=== PATIENT | male | born 1965 | race Two or more races ===

== ENCOUNTER 2016-08-10 10:44 | Inpatient (IN) | payer OTHER, MEDICAID ==
[~2016-08-10] VITALS: Ht 172.7 cm; Wt 70.3 kg
--- NOTE | 2016-08-10 10:55 | NUR ---
PT AMBULATORY TO ER BED 12. PRESENTS W/ ABCESS TO RT SIDE GROIN AREA X 4 DAYS AGO. REDNESS TO SURROUNDING AREA. INTACT SKIN W/ NOTED PUS. GOWNED AND PLACED ON MONITOR. PT IS C/O 10/10 PAIN. AWAITNG MD BROWNE.
--- NOTE | 2016-08-10 11:20 | NUR ---
DR HEREDIA AT BEDSIDE FOR EVAL.
[2016-08-10] MEDS ORDERED: IV SET PRIMARY PUMP SET 1 EA INFUS.SET MC ONE ×2 (11:29→19:57)
[2016-08-10] MEDS ORDERED: IV SET PRIMARY 1 EA INFUS.SET MC ONE (11:29)
[2016-08-10] MEDS ORDERED: ONDANSETRON HCL/PF 4 MG/2 ML VIAL ONE (11:29)
[2016-08-10] MEDS ORDERED: MORPHINE SULFATE INJ 4 MG/ML DISP.SYRIN ONE (11:29)
[2016-08-10] MEDS ORDERED: IV NS 0.9% 1,000 ML ONE (11:29)
[2016-08-10] MEDS ORDERED: ONDANSETRON HCL/PF 4 MG/2 ML VIAL IVP ONE (11:30)
[2016-08-10] MEDS ORDERED: VANCOMYCIN 1 GM in IV D5W 250 ML IV ONE (11:30)
[2016-08-10] MEDS ORDERED: IV NS 0.9% 1,000 ML BAG IV ONE (11:30)
[2016-08-10] MEDS ORDERED: MORPHINE SULFATE INJ 2 MG/ML DISP.SYRIN IV ONE (11:30)
[2016-08-10 11:32] LABS: BASOPHILS % (AUTO) 0.5 % (0.0-2.0); EOSINOPHILS % (AUTO) 0.6 % (0.0-6.0); HEMATOCRIT 45 % (39-51); HEMOGLOBIN 14.7 g/dL (13.5-17.5); LYMPHOCYTES # (AUTO) 1.8 /CMM (0.8-4.8); LYMPHOCYTES % (AUTO) 23.4 % (20.0-44.0); MEAN CORPUSCULAR HEMOGLOBIN 28 PG (26.0-33.0); MEAN CORPUSCULAR HGB CONC 33 g/dl (31.0-36.0); MEAN CORPUSCULAR VOLUME 84 fL (80-96); MONOCYTES # (AUTO) 0.7 /CMM (0.1-1.30); MONOCYTES % (AUTO) 8.6 % (2.0-12.0); NEUTROPHILS # (AUTO) 5.2 /CMM (1.8-8.9); NEUTROPHILS % (AUTO) 66.9 % (43.0-81.0); PLATELET COUNT (AUTO) 184 /CMM (150-450); RDW COEFFICIENT OF VARIATION 14.6 (11.5-15.0); RED BLOOD CELL COUNT(AUTO) 5.29 MIL/uL (4.5-6.0); WHITE BLOOD COUNT (AUTO) 7.7 K/uL (4.3-11.0)
[2016-08-10 11:42] LABS: CALCIUM, SERUM 9.6 mg/dL (8.5-10.1); POTASSIUM 4.1 mmol/L (3.5-5.1)
[2016-08-10 11:58] LABS: INR 1.03 (0.87-1.13)
--- NOTE | 2016-08-10 12:27 | NUR ---
HARESH PAGED, [employer] DRILL OPERATOR
--- NOTE | 2016-08-10 12:32 | NUR ---
CALLED NURSING SUP. FOR MS BED
--- NOTE | 2016-08-10 12:55 | NUR ---
HARESH PAGED, CYLINDER MACHINE OPERATOR
--- NOTE | 2016-08-10 13:09 | NUR ---
REPORT GIVEN TO HUMZA. AWAITING TRANSFER TO FLOOR.
[2016-08-10 13:30] VITALS: BP 122/82
[2016-08-10] MEDS ORDERED: ONDANSETRON HCL/PF 4 MG/2 ML VIAL IVP PRN (13:30)
[2016-08-10] MEDS ORDERED: Z GUARD REMEDY 2 OZ OINT TP PRN (13:30)
[2016-08-10] MEDS ORDERED: MAGNESIUM HYDROXIDE 30 ML UDC PO PRN (13:30)
[2016-08-10] MEDS ORDERED: MAG HYDROX/AL HYDROX/SIMETH 30 ML UDC PO PRN (13:30)
--- NOTE | 2016-08-10 13:30 | NUR ---
MS2/RN- OPENING NOTE PT. BROUGHT FROM EMERGENCY DEPARTMENT IN STABLE CONDITION. REPORT WAS PROVIDED. PT. A&OX4. BREATHING EVENLY, AND UNLABORED, RR 20, SP02 100%. PT. VITAL SIGNS, BP 122/82, HR 72. NO FEVER, TEMP. 98.7 F. PT. C/O PAIN, 8/10 IN AFFECTED AREA WHERE ABSCESS IS PRESENT, PAIN MEDICATION OFFERED AND GIVEN NORCO. PHOTO TAKEN OF WOUND ON GROIN FOR PT. RECORD, AND WOUND CONSULT ORDERED.
[2016-08-10] MEDS ORDERED: ZOLP10TA6 PO (13:33)
[2016-08-10] MEDS ORDERED: TRAM50TA2 PO (13:33)
[2016-08-10] MEDS ORDERED: FEE PK DOSING 1 MIN EA MC ONE (13:41)
[2016-08-10 14:00] VITALS: BP 122/82
[2016-08-10] MEDS: HYDROCODONE/APAP 5/325MG 1 EACH TABLET PO PRN ×2 (15:27→19:56)
[2016-08-10 16:00] VITALS: BP 125/80
--- NOTE | 2016-08-10 18:44 | NUR ---
MS2/RN -CLOSING NOTE PT. IS IN BED, AWAKE, A&OX4. NOT IN DISTRESS, BREATHING EVENLY AND UNLABORED. PT. DENIES PAIN. PT. BED IN LOW POSITION, 2 SIDE RAILS UP, CALL LIGHT WITHIN REACH. PT. HAS IV ACCESS ON THE RIGHT FOREARM. PT. HAD DINNER AND REPORTED DRINKING A CARTON OF MILK.
--- NOTE | 2016-08-10 19:30 | NUR ---
MS RN OPENING NOTES: PATIENT IN BED, AOX4, ON ROOM AIR, BREATHING EVEN AND UNLABORED. STATES THAT HE HAS PAIN OVER HIS R GROIN AREA SCALED AT 6/10, RADIATING TOWARDS THIGH. REASSURED PATIENT AND EXPLAINED SCHEDULED OF PAIN MEDICATIONS. PIV OVER RFA G 18 INTACT AND PATENT TO FLUSH. PROVIDED FOR COMFORT AND SAFETY. WILL CONT TO MONITOR.
[2016-08-10] MEDS ORDERED: SECONDARY IV SET 1 EA INFUS.SET MC ONE (19:52)
[2016-08-10] MEDS: VANCOMYCIN 1 GM in IV D5W 250 ML IV SCH (19:56)
[2016-08-10] MEDS ORDERED: IV NS 0.9% 250 ML IV ONE (19:57)
[2016-08-10 20:00] VITALS: BP 111/71
--- NOTE | 2016-08-10 20:00 | NUR ---
RN NOTES: PT C/O OF PAIN OVER R GROIN SCALED AT 4/10. ADMINISTERED NORCO 5-325 MG PO PRN. WILL CONT TO MONITOR.
[2016-08-10 22:00] VITALS: BP 111/71
[2016-08-11] MEDS: ZOLPIDEM TARTRATE 5 MG TABLET PO PRN ×2 (00:44→21:54)
[2016-08-11] MEDS: VANCOMYCIN 1 GM in IV D5W 250 ML IV SCH ×3 (04:19→20:24)
[2016-08-11 06:16] LABS: *BASOS 0 % (.); *EOS 0 % (.); *HCT 41.4 % (37.5-51.0); *HGB 13.7 g/dL (12.6-17.7); *IMMATURE GRANULOCYTES 0 % (.); *LYMPHOCYTES 22 % (.); *LYMPHS, ABSOLUTE 1.8 x10E3/uL (0.7-3.1); *MCH 27.8 pg (26.6-33.0); *MCHC 33.1 g/dL (31.5-35.7); *MCV 84 fL (79-97); *MONOCYTES 6 % (.); *MONOS, ABSOLUTE 0.5 x10E3/uL (0.1-0.9); *NEUTROPHILS 72 % (.); *NEUTROPHILS, ABSOLUTE 5.7 x10E3/uL (1.4-7.0); *PLT 200 x10E3/uL (150-379); *RBC 4.93 x10E6/uL (4.14-5.80); *RDW 15.7 % (12.3-15.4); *WBC 7.9 x10E3/uL (3.4-10.8)
[2016-08-11 06:44] LABS: BASOPHILS % (AUTO) 0.3 % (0.0-2.0); EOSINOPHILS # (AUTO) 0.1 /CMM (0.0-0.7); EOSINOPHILS % (AUTO) 1.2 % (0.0-6.0); HEMATOCRIT 37 % (39-51); HEMOGLOBIN 12.5 g/dL (13.5-17.5); LYMPHOCYTES # (AUTO) 1.5 /CMM (0.8-4.8); LYMPHOCYTES % (AUTO) 26.1 % (20.0-44.0); MEAN CORPUSCULAR HEMOGLOBIN 29 PG (26.0-33.0); MEAN CORPUSCULAR HGB CONC 34 g/dl (31.0-36.0); MEAN CORPUSCULAR VOLUME 85 fL (80-96); MONOCYTES # (AUTO) 0.5 /CMM (0.1-1.30); MONOCYTES % (AUTO) 9.6 % (2.0-12.0); NEUTROPHILS # (AUTO) 3.6 /CMM (1.8-8.9); NEUTROPHILS % (AUTO) 62.8 % (43.0-81.0); PLATELET COUNT (AUTO) 176 /CMM (150-450); RDW COEFFICIENT OF VARIATION 15.8 (11.5-15.0); RED BLOOD CELL COUNT(AUTO) 4.38 MIL/uL (4.5-6.0); WHITE BLOOD COUNT (AUTO) 5.7 K/uL (4.3-11.0)
--- NOTE | 2016-08-11 06:48 | NUR ---
MS RN CLOSING NOTES: PATIENT IN BED, AOX4, ON ROOM AIR, BREATHING EVEN AND UNLABORED. CURRENTLY DENIES PAIN AT THIS TIME. PIV OVER RFA G 18 INTACT AND PATENT TO FLUSH. DUE MEDS GIVEN. PROVIDED FOR COMFORT AND SAFETY. NO ACUTE CHANGE IN CONDITION NOTED THROUGH SHIFT. WILL ENDORSE TO AM RN FOR JAUN.
[2016-08-11 07:16] LABS: CALCIUM, SERUM 8.4 mg/dL (8.5-10.1); MAGNESIUM 1.8 mg/dL (1.8-2.4); PHOSPHORUS 3.2 mg/dL (2.5-4.9); POTASSIUM 3.8 mmol/L (3.5-5.1)
[2016-08-11 08:00] VITALS: BP 104/69
--- NOTE | 2016-08-11 08:00 | NUR ---
MS RN OPENING NOTES: PATIENT IN BED, AOX4, ON ROOM AIR, BREATHING EVEN AND UNLABORED. STATES THAT HE HAS PAIN OVER HIS R GROIN AREA RADIATING TOWARDS THIGH. REASSURED PATIENT AND EXPLAINED SCHEDULED OF PAIN MEDICATIONS. PIV OVER RFA G 18 INTACT AND PATENT TO FLUSH. PROVIDED FOR COMFORT AND SAFETY. WILL CONT TO MONITOR.
--- NOTE | 2016-08-11 09:22 | NUR ---
WOUND CARE CONSULT: PT PRESENTS WITH RED RAISED AREA TO RT GROIN, PRESENT ON ADMISSION. SOME SEROSANGUINOUS DRAINAGE NOTED. RECOMMEND SURGICAL CONSULT. DISCUSSED WITH NURSING STAFF. PT IS INDEPENDENT WITH BED MOBILITY. YISEL SCORE IS 19. WILL SEE PRN. FAY IN AGREEMENT WITH PLAN OF CARE. Addendum: 08/11/16 at 0924 by ROXY WARD WNDNU Amended: Links added.
[2016-08-11] MEDS ORDERED: SECONDARY IV SET 1 EA INFUS.SET MC ONE (12:06)
[2016-08-11] MEDS: HYDROCODONE/APAP 5/325MG 1 EACH TABLET PO PRN ×2 (12:13→20:26)
[2016-08-11] MEDS ORDERED: SILVER NITRATE APPLICATOR 1 EA BOX TP STA (13:27)
[2016-08-11] MEDS ORDERED: LIDOCAINE 1%-EPI 1:100,000 20 ML VIAL TP ONE (13:30)
[2016-08-11] MEDS ORDERED: MORPHINE SULFATE INJ 2 MG/ML DISP.SYRIN IV STA (13:58)
[2016-08-11 16:00] VITALS: BP 110/69
[2016-08-11 16:18] LABS: *% CD 4 POS. LYMPH 18.1 % (30.8-58.5); *% CD 8 POS. LYMPH 54.1 % (12.0-35.5); *ABSOLUTE CD 4 HELPER 326 /uL (359-1519); *ABSOLUTE CD 8 SUPPRESSOR 974 /uL (109-897); *CD4/CD8 RATIO 0.33 (0.92-3.72)
--- NOTE | 2016-08-11 19:30 | NUR ---
MS RN OPENING NOTES: PATIENT IN BED, AOX4, ON ROOM AIR, BREATHING EVEN AND UNLABORED. APPEARS CALM, BUT STATES 6/10 PAIN OVER R GROIN. NOTED CLEAN, INTACT DRESSING OVER R GROIN. PIV OVER RFA G 18 INTACT AND PATENT TO FLUSH. PROVIDED FOR COMFORT AND SAFETY. EXPLAINED SCHEDULE FOR PAIN MEDICATIONS. WILL CONT TO MONITOR.
--- NOTE | 2016-08-11 19:30 | NUR ---
MS2/RN- CLOSING NOTE PT. IS IN BED A&OX4. PT IS NOT IN DISTRESS, BREATHING EVENLY AND UNLABORED. SURGICAL WOUND DRAINING WAS PERFORMED BY BERTHA THAO NP, AND WOUND CULTURE TAKEN. BED IS IN LOW POSITION, 2 SIDE RAILS UP.
[2016-08-11 20:00] VITALS: BP 115/74
--- NOTE | 2016-08-11 20:25 | NUR ---
RN NOTES: PT COMPLAINED OF 6/10 PAIN OVER R GROIN. ADMINISTERED NORCO 5-325 MG PO. ON BED AT LOWEST AND LOCKED POSITION. WILL CONT TO MONITOR.
--- NOTE | 2016-08-11 22:00 | NUR ---
RN NOTES: PT REQUESTED FOR AMBIEN, STATES HE HAS TROUBLE FALLING ASLEEP BECAUSE OF THE PAIN, AND THIS CAUSES HIM ANXIETY. GAVE AMBIEN 5 MG PO. PLACED PT'S BED ON LOWEST AND LOCKED POSITION, SIDERAILS UP X 3. WILL CONT TO MONITOR.
[2016-08-12] MEDS: VANCOMYCIN 1 GM in IV D5W 250 ML IV SCH ×3 (04:19→20:27)
--- NOTE | 2016-08-12 05:40 | NUR ---
RN NOTES: PATIENT DECLINED TO HAVE AM LABS DRAWN RIGHT NOW, SAYING HE STILL WANTS TO SLEEP.
[2016-08-12] MEDS: HYDROCODONE/APAP 5/325MG 1 EACH TABLET PO PRN ×2 (06:30→10:47)
--- NOTE | 2016-08-12 06:52 | NUR ---
MS RN CLOSING NOTES: PATIENT IN BED, AOX4, ON ROOM AIR, BREATHING EVEN AND UNLABORED. APPEARS CALM AND IN NO DISTRESS. COMPLAINED OF 6/10 PAIN OVER R GROIN, ADMINISTERED NORCO 5-325 MG PO PRN AT 0630 AM. DUE MEDS GIVEN. WOUND CARE DONE OVER R GROIN DONE: CLEANSED WITH DAIKINS SOLN, PACKED WITH DAIKINS MOISTENED GAUZE, COVERED WITH DRY DRESSING AND SECURED WITH TAPE. PROVIDED FOR COMFORT AND SAFETY. WILL ENDORSE TO AM RN FOR JAUN.
[2016-08-12 07:16] LABS: BASOPHILS % (AUTO) 0.4 % (0.0-2.0); EOSINOPHILS # (AUTO) 0.1 /CMM (0.0-0.7); EOSINOPHILS % (AUTO) 1.6 % (0.0-6.0); HEMATOCRIT 41 % (39-51); HEMOGLOBIN 13.9 g/dL (13.5-17.5); LYMPHOCYTES # (AUTO) 1.6 /CMM (0.8-4.8); LYMPHOCYTES % (AUTO) 44.2 % (20.0-44.0); MEAN CORPUSCULAR HEMOGLOBIN 29 PG (26.0-33.0); MEAN CORPUSCULAR HGB CONC 34 g/dl (31.0-36.0); MEAN CORPUSCULAR VOLUME 85 fL (80-96); MONOCYTES # (AUTO) 0.5 /CMM (0.1-1.30); MONOCYTES % (AUTO) 12.5 % (2.0-12.0); NEUTROPHILS # (AUTO) 1.5 /CMM (1.8-8.9); NEUTROPHILS % (AUTO) 41.3 % (43.0-81.0); PLATELET COUNT (AUTO) 189 /CMM (150-450); RDW COEFFICIENT OF VARIATION 15.7 (11.5-15.0); RED BLOOD CELL COUNT(AUTO) 4.86 MIL/uL (4.5-6.0); WHITE BLOOD COUNT (AUTO) 3.7 K/uL (4.3-11.0)
--- NOTE | 2016-08-12 07:21 | NUR ---
MS/RN OPENING NOTES RECEIVED PATIENT IN BED AWAKE, ALERT AND ORIENTED X 4 IN NO ACUTE SIGNS OF DISTRESS. ABLE TO VERBALIZED NEEDS AND CONCERNS, NO C/O PAIN OR DISCOMFORTS @ THIS TIME. IV ACCESS ON RIGHT FOREARM INTACT AND PATENT. CALL LIGHT WITHIN EASY REACH. BED KEPT LOW AND LOCKED. SAFETY PRECAUTIONS MAINTAINED. WILL CONTINUE TO MONITOR ACCORDINGLY.
[2016-08-12 07:28] LABS: CREATININE 0.9 mg/dL (0.6-1.3); POTASSIUM 3.9 mmol/L (3.5-5.1)
[2016-08-12 08:11] VITALS: BP 107/72
[2016-08-12] MEDS: DAKINS QUARTER STRENGTH (0.125%) 480 ML BOTTLE TOP SCH (09:44)
--- NOTE | 2016-08-12 12:31 | NUR ---
RN NOTES PATIENT SEEN AND EXAMINED BY DR MCDONALD. ALL ABNORMAL LAB RESULTS REPORTED. HE ORDERED TO DISCONTINUE NORCO 5/325AND FOR PAIN AND ORDERED TO GIVE TYLENOL 650 MG TAB Q6HRS PRN AND IBUPROFEN 4OOMG PRN IN BETWEEN FOR BREAKTHROUGH PAIN. WITH SPECIAL INSTRUCTION NOT TO GIVE THEM ON THE SAME TIME. WILL CONTINUE TO MONITOR.
[2016-08-12] MEDS: ACETAMINOPHEN 325 MG TABLET PO PRN ×2 (15:30→20:29)
[2016-08-12 16:01] VITALS: BP 111/73
[2016-08-12] MEDS: IBUPROFEN 400 MG TABLET PO PRN (17:31)
--- NOTE | 2016-08-12 18:44 | NUR ---
MS RN CLOSING NOTES: PATIENT RESTING IN BED WATCHING TV IN NO ACUTE SIGNS OF DISTRESS. ALERT AND ORIENTED X 4, COMPLAINTS OF PAIN TO RIGHT GROIN DURING SHIFT WITH PRN PAIN MEDS GIVEN ORDERED. MAINTAINED ON ROOM AIR, BREATHING WELL WITH NO SOB NOTED. DRESSING ON RIGHT GROIN INTACT, CLEAN AND DRY. IV ACCESS ON RFA G 18 INTACT AND PATENT. ALL NEEDS AND CARE WELL PROVIDED. DUE MEDS GIVEN ORDERED AND TOLERATED. CALL LIGHT KEPT WITHIN REACH. WILL ENDORSED TO DOCUMENT RESTORER FOR CONTINUITY OF CARE.
--- NOTE | 2016-08-12 19:30 | NUR ---
rn note RECEIVED PT IN BED AWAKE AND ALERT. BREATHING EVENLY. NO SOB. NO DISTRESS. SKIN WARM AN DRY. DRESSING CDI. W/ C/O MILD PAIN ON THE SITE. NEEDS ATTENDED. CALL LIGHT WITHIN REACH. WILL CONT TO MONITOR .
[2016-08-12 20:00] VITALS: BP 106/70
--- NOTE | 2016-08-12 20:30 | NUR ---
TYLENOL GIVEN ORDERED FOR C/O MILD PAIN ON INCISION SITE ON R GROIN. DRESSING REMAINED CDI. NO BLEEDING. WILL CONT TO MONITOR
[2016-08-13] MEDS: VANCOMYCIN 1 GM in IV D5W 250 ML IV SCH ×3 (04:39→20:00)
--- NOTE | 2016-08-13 06:28 | NUR ---
RN NOTE; PT IN BED SLEEPING AROUSES EASILY. BREATHING EVENLY. NO SOB. NO DISTRESS. NO ACUTE CHANGES DURING NIGHT. SKIN WARM AND DRY. DRESSING ON R GROIN CDI. NO C/O PAIN OR DISCOMFORT AT THIS TIME. ON ONGOING IV ATB EMA WELL. NEEDS ATTENDED. BED LOW LOCKED. SRX2. CALL LIGHT WITHIN REACH. WILL CONT TO MONITOR AND WILL ENDORSE TO AM SHIFT FOR JAUN.
[2016-08-13 06:41] LABS: CALCIUM, SERUM 8.6 mg/dL (8.5-10.1); CREATININE 1.2 mg/dL (0.6-1.3); POTASSIUM 3.5 mmol/L (3.5-5.1)
--- NOTE | 2016-08-13 07:20 | NUR ---
RN NOTES RECEIVED PATIENT RESTING COMFORTABLY, EASILY AROUSABLE DURING CARE. RESPIRATIONS EVEN AND UNLABORED, IN NO APPARENT PAIN OR DISCOMFORT. IV SITE PATENT AND INTACT NO REDNESS OR INFILTRATION. DRESSING TO RIGHT GROIN CDI, KEPT CLEAN DRY AND COMFORTABLE, CALL LIGHT WITHIN EASY REACH.
[2016-08-13 08:00] VITALS: BP 98/56
[2016-08-13] MEDS: DAKINS QUARTER STRENGTH (0.125%) 480 ML BOTTLE TOP SCH (09:37)
[2016-08-13] MEDS: IBUPROFEN 400 MG TABLET PO PRN ×2 (11:03→20:40)
[2016-08-13] MEDS: ACETAMINOPHEN 325 MG TABLET PO PRN (12:45)
[2016-08-13 16:00] VITALS: BP 95/58
--- NOTE | 2016-08-13 18:47 | NUR ---
RN NOTES PATIENT LAYING IN BED; R GROIN DRSG CDI; IV HL TO RFA PATENT, NO SIGNS OF REDNESS; DENIES ANY DISCOMFORT AT THIS TIME; WILL ENDORSE TO PM NURSE.
--- NOTE | 2016-08-13 19:26 | NUR ---
MS RN NOTERS: DR BRIAN CALLED BACK, MADE AWARE OF PT'S WOUND CULTURE RESULT, PT ON VANCOMYCIN 1GM IV Q8HR, ASKED IF WOULD LIKE TO GET ID CONSULT, PER MD NO NEW ORDERS.
--- NOTE | 2016-08-13 19:40 | NUR ---
MS RN INITIAL NOTES: RECEIVED REPORT FROM EMILY HENNING. PT ON BED AWAKE, A/O X3, ON ROOM AIR RESPIRATION EVEN AND UNLABORED. PT APPEARS TO BE WITHDRAWN, DOESNT ENGAGED IN EYE CONTACT AND CONVERSATION, ONLY ANSWER WHEN ASK QUESTIONS. RFA G 18 PATENT AND FLUSHING WELL, ON HL. SAFETY PRECAUTIONS FOR FALL INITIATED CALL LIGHT IN REACH, WILL CONTINUE TO MONITOR
--- NOTE | 2016-08-13 19:55 | NUR ---
MS RN NOTES: RESULT OF VANCO TROUGH CAME BACK AND LEVEL IS 22, CALLED PHARMACY TALKED TO ANGI, PER ANGI HOLD THE DOSE FOR NOW
[2016-08-13 20:00] VITALS: BP 130/92
--- NOTE | 2016-08-13 20:18 | NUR ---
ms rn notes: vancomycin scheduked for 1999, not administered, per [facility], hold dose for now as vanco trough level is 22
--- NOTE | 2016-08-13 20:42 | NUR ---
ms rn notes Pt complained of pain in the rt groin 12/09. Administered Ibuprofen 400mg. Will continue to monitor and reassess.
[2016-08-14] MEDS: VANCOMYCIN 0.75 GM in IV D5W 250 ML IV SCH ×2 (04:09→12:23)
[2016-08-14 07:00] LABS: CALCIUM, SERUM 8.5 mg/dL (8.5-10.1); CREATININE 1.1 mg/dL (0.6-1.3); POTASSIUM 3.7 mmol/L (3.5-5.1)
--- NOTE | 2016-08-14 07:30 | NUR ---
MS RN AM NOTES: PT IN BED, AWAKE, A/O X3, ON ROOM AIR RESPIRATION EVEN AND UNLABORED. PT APPEARS TO BE WITHDRAWN, DOESNT ENGAGED IN EYE CONTACT AND CONVERSATION, ONLY ANSWER WHEN ASK QUESTIONS. DENIES ANY PAIN, S/P I&D RT GROIN ABSCESS BY LOYD THAO LUMBER STICKER ON 08/11/16, DRESSING IN PLACE. RFA G 18 PATENT AND FLUSHING WELL, ON HL. AMBULATORY. SAFETY PRECAUTIONS, CALL LIGHT IN REACH, WILL CONTINUE TO MONITOR.
--- NOTE | 2016-08-14 07:40 | NUR ---
MS RN CLOSING NOTES: PT ON BED, AWAKE, REMAINS A/O X3, NO SOB NOTED, IV ACCESS REMAINS PATENT AND FLUSHING WELL, ON HL. PT REFUSED MORNING CARE, EDUCATION PROVIDED TO THE PT. VS REMAINS STABLE, NEEDS ATTENDED. SAFETY PRECAUTION FOR FALL REMAINS ENGAGED, CALL LIGHT IN REACH, POSSIBLE DC TODAY, EXIT CARE COMPLETED, WILL ENDORSE TO DAY RN FOR JAUN.
[2016-08-14 08:00] VITALS: BP 107/70
[2016-08-14] MEDS ORDERED: MUPIROCIN OINT 2% 22 GM TUBE TP SCH (08:30)
--- NOTE | 2016-08-14 09:30 | NUR ---
MS RN NOTES DR. CHIN AT BEDSIDE EARLIER.
[2016-08-14] MEDS: DAKINS QUARTER STRENGTH (0.125%) 480 ML BOTTLE TOP SCH (09:48)
--- NOTE | 2016-08-14 10:15 | NUR ---
MS RN NOTES WOUND TREATMENT DONE BY LOYD THAO NP.
--- NOTE | 2016-08-14 12:23 | NUR ---
MS RN NOTES STARTED VANCO IV.
[2016-08-14] MEDS ORDERED: CLIN300C97 PO (12:56)
--- NOTE | 2016-08-14 15:53 | NUR ---
MS RN NOTES PATIENT TO BE DISCHARGED TO HOME TODAY PER MD IN STABLE ORDER. PROVIDED DC INSTRUCTIONS MED RECON LIST/PRESCRIPTION AND HEALTH TEACHINGS. WOUND TREAMENT DONE AND INSTRUCTIONS BY BERTHA THAO NP FOR /TIFFANY ON HOW TO DO WOUND TREATMENT AND DRESSING CHANGE. VERBALIZED UNDERSTANDING. [facility] TO FOLLOW UP ON PATIENT. PT TO SEE HIS PCP IN 1-2 WEEKS AND WILL MAKE OWN APPOINTMENT. RFA IV ACCESS REMOVED, NO BLEEDING, DRESSING IN PLACE. ALL BELONGINGS CHECKED AND RETURNED. ALL PAPERWORKS SIGNED. PATIENT TO BE PICKED UP BY HIS PARTNER AND WILL TAKE HIM HOME VIA PRIVATE CAR. Addendum: 08/14/16 at 1711 by ILENE ISSA RN ADDENDUM PATIENT REQUESTED TO SKIP PHOTO TAKING OF HIS WOUND SINCE DRESSING ARE ALL IN PLACED.
[2016-08-14 16:00] VITALS: BP 112/77
--- NOTE | 2016-08-14 16:30 | NUR ---
MS RN NOTES PATIENT PICKED UP BY HIS PARTNER. ACCOMPANIED BY ME TO LOBBY VIA WHEELCHAIR.
[2016-08-15 14:24] LABS: *HIV-1 RNA BY PCR 42920 copies/mL (.); *HIV-1 log10 RNA 4.633 (.)
== END 2016-08-14 16:30 | disposition home health service (06) | DRG 603 ==
LOC: ER 10:48 → MEDSG2 13:18
PROVIDERS: ADMIT Family Medicine; ATTEND Family Medicine
PROC: 0J9C3ZZ Drainage of Pelvic Region Subcutaneous Tissue and Fascia, Percutaneous Approach (ICD-10-PCS; principal; 2016-08-11)
DX: L02.214 Cutaneous abscess of groin (principal); F32.9 Major depressive disorder, single episode, unspecified; F41.9 Anxiety disorder, unspecified; G47.00 Insomnia, unspecified; Z91.14 Patient's other noncompliance with medication regimen; D72.819 Decreased white blood cell count, unspecified; Z91.19 Patient's noncompliance with other medical treatment and regimen; R79.89 Other specified abnormal findings of blood chemistry; B95.62 Methicillin resistant Staphylococcus aureus infection as the cause of diseases classified elsewhere
CPT/HCPCS: 36415; 80048-TC; 80061-TC; 80202-TC; 83605-TC; 83735-TC; 84100-TC; 85025-TC; 85730-TC; 86360; 87040-TC; 87070-TC; 87081-TC; 87536; A4606; A6402; A6403; J2270; J2405; J3370; J3490; J7030; J7050; J7060; Z7610